=== PATIENT | male | born 1965 | race Caucasian/White ===

== ENCOUNTER → 2022-08-09 12:51 | Outpatient (BNVA) | payer MEDICAID, SELFPAY | PROVIDERS: PCP Internal Medicine; Visit Provider Physician Assistant ==

== ENCOUNTER 2022-09-12 12:37 | Outpatient (AMB) | payer OTHER, SELFPAY ==
--- NOTE | 2022-09-12 12:51 | MHC.OFFVISWM ---
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 Allergies cephalexin [From Keflex] Allergy (Severe, Verified 09/12/22 12:56) Anaphylaxis doxycyclone Allergy (Mild, Uncoded 08/09/22 13:33) itchy zpack Allergy (Mild, Uncoded 08/09/22 13:33) itchy Medication List - Last Reconciled 09/12/22 by LIBRA Mccormack bupropion HCl 150 mg PO BID dulaglutide (Trulicity) 3 mg subcut QWEEK flash glucose sensor (FreeStyle Brianda 2 Sensor kit) As directed hydrocortisone-acetic acid 1-2 % 3 drps otic (ears) BID insulin aspart U-100 (Novolog FlexPen U-100 Insulin aspart) subcut metformin ER 1,000 mg PO BID pregabalin 0 mg PO HPI HPI Comments History of Present Illness Details Pt is here to start the [facility] surgical weight loss program. He heard about our program from his PCP. He is not sure about surgery as he works 12-14 hour days to help support his at home who had suffered a stroke in the past. His goal is to lose weight and achieve a healthy lifestyle as well as to improve, if not resolve, obesity related medical conditions, including DM. He reports first being concerned about his weight over the last 5-10 years, highest weight to date was 270. Current weight is 258.6 with a BMI of 38.2. He has tried multiple methods of weight loss including fad diets and exercise without permanent results. He lives with his and kids. 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 He wakes at:?6 am, and goes to bed at?10 pm. Dinner is at 9 pm. Breakfast: coffee w cream and splenda w egg and cheese on croissant or donut AM snack: skip Lunch: ham and cheese wrap, grilled cheese PM snack: popcorn, granola bar Dinner: Welsh food, pizza, chicken latasha on noodles (80 % is take out or fast food) After dinner: skip Other snacks: donuts, cookies, ice cream Liquids: 32 oz water daily, 60-80 oz diet pepsi daily Alcohol/marijuana/tobacco intake: none Exercise: none, no gym membership, could join a gym but works 12-14 hrs daily, GERD score: 22 MARINO score: 3 ESS score: 14 QOL score: 86 PFSH Surgical History History of nasal surgery Family History Mother Diabetes Thyroid condition Father No problems noted. Son Diabetes Son Diabetes Son No problems noted. Daughter Migraines Social History Alcohol intake: never Patient Tobacco Use Status: Never used Tobacco Review of Systems Const All systems reviewed & are unremarkable except as noted in HPI and below Physical Exam Const General: cooperative, healthy appearing and no acute distress Orientation/consciousness: patient oriented x3 HEENT Head: Yes normal to inspection Ears: hearing grossly normal bilaterally General nose exam: Normal external nose present Face and sinus: Yes normal facial exam Eyes General: appearance normal, both eyes and all related structures Resp Effort & Inspection: normal respiratory effort Auscultation: clear to auscultation bilaterally Cardio Rate: regular rate Rhythm: regular rhythm Heart sounds: S1 normal heart sound present and S2 normal heart sound present GI Inspection: Yes normal to inspection, No distended and Yes obesity Palpation (GI): Soft to palpation, nontender and no guarding Auscultation: normal bowel sounds Skin General skin exam: Excoriation Rashes: rashes noted (hands/arms) Neuro General: patient oriented x3 Extrem General: No edema Psych Appearance: grossly normal Mental Status: mental status grossly normal Speech and movement: Normal speech and movement present Affect: normal affect Attitude: cooperative Assessment & Plan Assessment & Plan (1) Obesity (BMI 30-39.9): Code(s): E66.9 - Obesity, unspecified Plan: This is a?57 yo male who will presented to possibly start our [facility] program to prepare for bariatric surgery.? He is not sure he wants surgery and is going to think about whether or not this program is right for him. He also works 12-14 hour days to help support his who recently suffered a stroke. If he wishes to continue he will let me know and I will order standard pre-op labs/testing and schedule f/u appointments. ? Adequate sleep of 7-8 hours per night discussed, awakening at 6 am and going to bed at 10 pm ? Purchase body composition analyzer scale (Tina flores or Corey recommended) and check weight weekly. The best time to do this is first thing in the morning after going to the bathroom. 1. Nutritional counseling: Be sure to careful read the number of scoops per shake Start with 3 Premier Protein shakes ([employer], [employer], [facility]), (1 scoop in 8 oz low fat unsweetened almond milk or water each) First shake at 7am-9am, Second shake at 11am-1pm 1 protein bar (Fulfil bars at [employer], [facility], or [employer]) at 2pm-4pm. Another shake with 1 scoop in 8 oz unsweetened almond milk at 5pm-7pm. Dinner at 9pm (9 forks of protein and 9 forks of salad/vegetables). Meal to include lean meat (beef, fish, pork, turkey, chicken), cooked vegetables or a salad with olive oil and/or fruits (berries, pears, apples, kiwi). Avoid salt, breads, potatoes, rice, pasta, desserts. Try to drink 64 oz of water daily and avoid soda and juices. ?2. Each shake would be drunk slowly, like coffee in a period of 2 hours. ?3. Cut each bar in 4 pieces and eat each piece in 30 min ?to make each bar last 2 hours. ?4. I emphasized the importance of measuring accurately the food portion and measure it carefully when serving the food on the plate ?5. The meal portions include 9 full-size forks of meat and 9 full-size forks of salad. You always eat the meat portion but you can replace up to half of the forks of salad/vegetables with rice, potatoes or pasta, or a fruit ?if you like. The less you do it the better weight loss will be. ?6. One full-size fork is what can be scooped on the fork without falling aside and not what can be bit with the fork. Use regular forks like those you find in a typical restaurant. ?7.? Please send me weight measurements as soon as possible and then once a week. Always include your diet and exercise plan. Alternatively come weekly at the office for weight checks and send me the measurements. ?8. Exercise counseling: Begin by watching a stretching for beginners video. Start slowly and begin to stretch your muscles. You should do this before and after each exercise session to prevent injury. Please join [employer] gym near your home. Ask the manager transfusion or one of the trainers how to use the machines if you are unfamiliar with them. Start elliptical with a resistance of 2. Increase resistance by 1 every 3 min to your most comfortable resistance with a max resistance of 8. Reduce the resistance by 1 every 3 minutes back down to 2 and repeat cycles for 300 calories. Alternatively, start treadmill with a speed of 3.0 and incline of 0, increasing incline by 1 every 3 minutes to the highest comfortable level (max 6 for now) then decrease in the same fashion. Repeat process to a goal of 300 calories. Goal of 2000 calories burned or more weekly. You may also consider use of the stationary bike. The easiest would be to chose the fat-burn or interval training program on the machine and do this until you reach the 300 calorie goal. Alternatively, you can manually adjust the resistance in a similar fashion as mentioned above, (resistance of 2-8 with a goal speed of 12 mph). Tracking calories is essential. 9. Alternatively start walking outside daily, tracking calories with a goal of 300 calories per day, daily. You can download the bindu Stylehive which can track your time, distance and calories while walking outside. You press start in the bindu when you start and then stop when you are finished. 10.? It is important to communicate by text weekly 11. Please get labs, EKG and chest X-Ray within 1 week. 12. Discussed and answered all questions regarding?obtained consent to participate in the [facility]?Registry. 13. Please follow the diet plan exactly, without any change. If you do not like something about the plan or you feel hungry, you need to communicate with me so I can help you revise the plan. You should not change the plan yourself. Text me at [phone] 14. Goal is to lose at least 12 pounds in the first month 15. Goal is to lose 10% of your weight before surgery, which is about 26 lbs. Ultimate weight goal: 232 lbs before surgery Patient is morbidly obese and is not considered stable at this time.?I spent a total of 70 minutes reviewing/updating records, examining the patient and counseling the patient on weight management as detailed above. Coding Level of Care Code New Pt Level 5 (56155) Diagnoses Obesity (BMI 30-39.9) E66.9 Time Spent (min) 70
[2022-09-12 12:52] VITALS: BP 140/71; PULSE 101; TEMP 36.7; O2SAT 95; BMI 38.2
== END 2022-09-12 13:59 | disposition home or self-care (01) ==
PROVIDERS: PCP Internal Medicine; Visit Provider Physician Assistant Surgical
DX: E66.9 Obesity, unspecified (principal); Z68.38 Body mass index [BMI] 38.0-38.9, adult
CPT/HCPCS: 99205

== ENCOUNTER → 2022-09-12 12:37 | Outpatient (BNVA) | payer OTHER, SELFPAY | PROVIDERS: PCP Internal Medicine; Visit Provider Physician Assistant Surgical | DX: E66.9 Obesity, unspecified (principal); Z68.38 Body mass index [BMI] 38.0-38.9, adult | CPT/HCPCS: 99202 ==